=== PATIENT | female | born 1965 | race Two or more races ===

== ENCOUNTER 2021-08-31 10:05 | Emergency (ER) | payer OTHER ==
[~2021-08-31] VITALS: Ht 162.6 cm; Wt 77.2 kg
[2021-08-31 11:19] VITALS: BP 106/55
[2021-08-31] MEDS ORDERED: HYDROcodone/APAP 5/325MG 1 TAB TABLET PO ONE (13:00)
[2021-08-31] MEDS ORDERED: IBUPROFEN 200 MG TABLET. PO ONE (13:00)
[2021-08-31] MEDS ORDERED: CYCLOBENZAPRINE 10 MG TABLET. PO ONE (13:00)
[2021-08-31] MEDS ORDERED: IBUP-1007 PO (13:01)
[2021-08-31] MEDS ORDERED: CYCL10TA19 PO (13:01)
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
== END 2021-08-31 13:07 | disposition home or self-care (01) ==
LOC: ER 10:05
DX: S16.1XXA Strain of muscle, fascia and tendon at neck level, initial encounter (principal); S29.012A Strain of muscle and tendon of back wall of thorax, initial encounter; V49.49XA Driver injured in collision with other motor vehicles in traffic accident, initial encounter; Y93.I9 Activity, other involving external motion; Y92.89 Other specified places as the place of occurrence of the external cause; Y99.8 Other external cause status
CPT/HCPCS: 99284